=== PATIENT | female | born 1965 | race African-American/Black ===

== ENCOUNTER 2016-10-13 00:48 | Emergency (ER) | payer MEDICAID ==
[~2016-10-13] VITALS: Ht 162.6 cm; Wt 102.0 kg
[~2016-10-13 00:48] MED LIST: ARIP20TA7 PO; B50 PO; PHEN100C4 PO; VENL150C2 PO; WELLBUTRIN PO; ZOLP5TAB2 PO
[2016-10-13] MEDS ORDERED: FAMOTIDINE 20MG TABLET PO SCH (01:30)
[2016-10-13] MEDS ORDERED: LORAZEPAM 1MG TABLET PO ONE ×2 (02:00→03:30)
[2016-10-13 02:31] LABS: CLARITY URINE CLOUDY (CLEAR); COLOR URINE YELLOW (YELLOW); GLUCOSE URINE NEGATIVE (NEGATIVE); KETONES URINE TRACE (NEGATIVE); LEUKOCYTE ESTERASE URINE 1+ (NEGATIVE); NITRITE URINE NEGATIVE (NEGATIVE); OCCULT BLOOD URINE 1+ (NEGATIVE); PH URINE 5.5 (4.5-8.0); PROTEIN URINE 2+ (NEGATIVE); SPECIFIC GRAVITY URINE 1.017 (1.005-1.030)
[2016-10-13 02:31] LABS: BASOPHILS % 0.7 % (0.0-2.0); DIFFERENTIAL COMMENT 0; EOSINOPHILS % 0.1 % (0.0-5.0); HEMATOCRIT. 34.7 % (36.0-48.0); HEMOGLOBIN. 11.1 g/dL (12.0-16.0); LYMPHOCYTES % 14.1 % (20.0-50.0); MEAN CORPUSCULAR HEMOGLOBIN 24.7 pg (28.0-32.0); MEAN CORPUSCULAR HGB CONC 31.9 g/dL (31.0-37.0); MEAN CORPUSCULAR VOLUME 77.3 fL (81.0-99.0); MONOCYTES % 4.8 % (2.0-8.0); NEUTROPHILS % 80.3 % (40.0-76.0); PLATELET 336 x1000/uL (130-400); RED BLOOD CELL COUNT 4.49 mill/uL (4.2-5.4); RED CELL DISTRIBUTION WIDTH 18.2 % (11.6-14.6)
[2016-10-13 02:35] LABS: CHLORIDE 110 mEq/L (98-107); INDEX HEMOLYSI 1 (1-3); INDEX ICTERIC 1 (1-4); INDEX LIPEMIC 1 (1-3)
[2016-10-13 02:37] LABS: HCG SCREEN NEGATIVE
[2016-10-13 02:40] LABS: *AMPHETAMINES SCREEN URINE NEGATIVE (NEGATIVE); *BARBITURATES SCREEN URINE NEGATIVE (NEGATIVE); *BENZODIAZEPINES SCREEN URINE NEGATIVE (NEGATIVE); *COCAINE SCREEN URINE NEGATIVE (NEGATIVE); CANNABINOID URINE SCREEN PRESUMTIVE POSITIVE (NEGATIVE); ECSTASY MDMA SCREEN URINE NEGATIVE (NEGATIVE); METHADONE URINE SCREEN NEGATIVE (NEGATIVE); OPIATES URINE SCREEN NEGATIVE (NEGATIVE); PHENCYCLIDINE URINE SCREEN NEGATIVE (NEGATIVE)
[2016-10-13 02:44] LABS: ALANINE AMINOTRANSFERASE 29 IU/L (13-61); ALBUMIN 3.8 g/dL (3.4-5.0); ANION GAP 11; CALCIUM 9.4 mg/dL (8.5-10.1); CARBON DIOXIDE 24 mEq/L (21-32); LIPASE 238 IU/L (73-393); UREA NITROGEN BLOOD 8 mg/dL (7-21); eGFR > 60 mL/min (>60)
[2016-10-13 02:49] LABS: SQUAMOUS EPITHELIAL CELL URINE 1+ /lpf (RARE/1+)
[2016-10-13 02:50] LABS: RBC URINE 0-2 /hpf (0-2)
[2016-10-13 02:51] LABS: BACTERIA URINE 4+
[2016-10-13] MEDS ORDERED: CEFTRIAXONE 1 G PREMIX 50 ML IV ONE (03:15)
[2016-10-13 06:30] VITALS: BP 137/90
== END 2016-10-13 09:45 | disposition left against medical advice (07) ==
LOC: ER 00:49
DX: F41.9 Anxiety disorder, unspecified (principal); I10 Essential (primary) hypertension; F20.9 Schizophrenia, unspecified; F31.9 Bipolar disorder, unspecified; Z79.899 Other long term (current) drug therapy; F17.200 Nicotine dependence, unspecified, uncomplicated; Z88.8 Allergy status to other drugs, medicaments and biological substances
CPT/HCPCS: 36415; 80053; 80305; 81001; 83690; 84703; 85025; 96365; 99284; J0696; Z7610

== ENCOUNTER 2016-10-13 09:53 | Emergency (ER) | payer MEDICAID, OTHER ==
[~2016-10-13] VITALS: Ht 162.6 cm; Wt 74.0 kg
[2016-10-13] MEDS ORDERED: IBUPROFEN 400MG TABLET PO ONE (11:00)
[2016-10-13 13:49] VITALS: BP 144/76
== END 2016-10-13 15:04 | disposition home or self-care (01) ==
LOC: ER 09:56
DX: S16.1XXA Strain of muscle, fascia and tendon at neck level, initial encounter (principal); I10 Essential (primary) hypertension; F31.9 Bipolar disorder, unspecified; F20.9 Schizophrenia, unspecified; Z88.8 Allergy status to other drugs, medicaments and biological substances; W19.XXXA Unspecified fall, initial encounter; Y93.02 Activity, running; Y99.8 Other external cause status; Y92.89 Other specified places as the place of occurrence of the external cause
CPT/HCPCS: 72040; 72125; 99284

== ENCOUNTER 2016-10-13 22:34 | Emergency (ER) | payer MEDICAID, OTHER ==
[~2016-10-13] VITALS: Ht 162.6 cm; Wt 68.0 kg
[2016-10-13 22:36] VITALS: BP 146/80
== END 2016-10-14 00:59 | disposition left against medical advice (07) ==
LOC: ER 22:34
DX: Z53.21 Procedure and treatment not carried out due to patient leaving prior to being seen by health care provider (principal)

== ENCOUNTER 2021-08-11 04:55 | Emergency (ER) | payer MEDICAID, OTHER ==
[~2021-08-11] VITALS: Ht 170.2 cm; Wt 78.0 kg
[~2021-08-11 04:55] MED LIST changes: +ARIP20TA2 PO; -ARIP20TA7 PO
[2021-08-11 04:56] VITALS: BP 150/60
== END 2021-08-11 05:24 | disposition home or self-care (01) ==
LOC: ER 04:55
DX: R06.00 Dyspnea, unspecified (principal); F17.290 Nicotine dependence, other tobacco product, uncomplicated; Z88.8 Allergy status to other drugs, medicaments and biological substances
CPT/HCPCS: 99283; 99406

== ENCOUNTER 2022-10-24 06:41 | Emergency (ER) | payer MEDICAID ==
[~2022-10-24] VITALS: Ht 167.6 cm; Wt 69.0 kg
[~2022-10-24 06:41] MED LIST changes: -VENL150C2 PO; +VENL150C4 PO
[2022-10-24 06:49] VITALS: BP 162/92
[2022-10-24] MEDS ORDERED: ONDANSETRON HCL 4MG/2ML INJ IV ONE (07:15)
[2022-10-24] MEDS ORDERED: METHYLPREDNISOLONE SOD SUCC 125 MG/2 ML VIAL IV ONE (07:15)
[2022-10-24] MEDS ORDERED: DIPHENHYDRAMINE 50MG/ML VIAL IV ONE (07:15)
[2022-10-24] MEDS ORDERED: FAMOTIDINE 20MG/2ML VIAL IV ONE (07:15)
[2022-10-24 07:28] LABS: CHLORIDE 109 mEq/L (98-107)
[2022-10-24 07:33] LABS: BASOPHILS % 0.6 % (0.0-2.0); EOSINOPHILS % 0.9 % (0.0-5.0); HEMOGLOBIN. 13.4 g/dL (12.0-16.0); LYMPHOCYTES % 30.9 % (20.0-50.0); MEAN CORPUSCULAR HEMOGLOBIN 29.5 pg (28.0-32.0); MEAN CORPUSCULAR VOLUME 88.3 fL (81.0-99.0); MEAN PLATELET VOLUME 7.7 fl (7.4-10.4); MONOCYTES % 10.1 % (2.0-8.0); NEUTROPHILS % 57.5 % (40.0-76.0); PLATELET 257 x1000/uL (130-400); RED BLOOD CELL COUNT 4.53 mill/uL (4.2-5.4); RED CELL DISTRIBUTION WIDTH 14.9 % (11.6-14.6)
[2022-10-24] MEDS ORDERED: METHYLPREDNISOLONE SOD SUCC 125 MG/2 ML VIAL IV NR (10:15)
[2022-10-24] MEDS ORDERED: FAMOTIDINE 20MG/2ML VIAL IV NR (10:30)
[2022-10-24] MEDS ORDERED: DIPHENHYDRAMINE 50MG/ML VIAL IV NR (10:30)
[2022-10-24] MEDS ORDERED: ONDANSETRON HCL 4MG/2ML INJ IV NR (10:30)
[2022-10-24] MEDS ORDERED: EPIN0.1517 IM (11:54)
[2022-10-24] MEDS ORDERED: B50 PO (11:54)
== END 2022-10-24 12:19 | disposition home or self-care (01) ==
LOC: ER 06:53
DX: T78.3XXA Angioneurotic edema, initial encounter (principal); Z88.8 Allergy status to other drugs, medicaments and biological substances
CPT/HCPCS: 36415; 80053; 85025; 96374; 96375; 99284; J2405; J2930; J3490; Z7610

== ENCOUNTER 2024-01-25 14:52 | Emergency (ER) | payer MEDICAID ==
[~2024-01-25] VITALS: Ht 165.1 cm; Wt 82.0 kg
[~2024-01-25 14:52] MED LIST changes: +EFXR15 PO; +EPIN0.1517 IM; -VENL150C4 PO
[2024-01-25 15:03] VITALS: BP 160/80; PULSE 81; RESP 16; O2SAT 97
[2024-01-25] MEDS ORDERED: AMOX1TAB16 MT (17:02)
[2024-01-25] MEDS: TETANUS, DIPHTHERIA, PERTUSSIS VAC/PF 0.5ML (>10YR OLD) IM ONE (17:27)
[2024-01-25] MEDS: AMOXICILLIN/POTASSIUM CLAVULANATE 875/125MG TAB PO ONE (17:27)
== END 2024-01-25 18:12 | disposition home or self-care (01) ==
LOC: ER 14:52
DX: L08.89 Other specified local infections of the skin and subcutaneous tissue (principal); F31.9 Bipolar disorder, unspecified; E11.9 Type 2 diabetes mellitus without complications; I10 Essential (primary) hypertension; Z79.899 Other long term (current) drug therapy; Z88.8 Allergy status to other drugs, medicaments and biological substances
CPT/HCPCS: 90715; 10061; 90471; 99284; Z7610 ×3; 99283

== ENCOUNTER 2024-04-10 08:51 | Emergency (ER) | payer MEDICAID ==
[~2024-04-10] VITALS: Ht 167.6 cm; Wt 98.0 kg
[~2024-04-10 08:51] MED LIST changes: +AMOX1TAB16 MT
[2024-04-10 08:59] VITALS: BP 170/99; PULSE 77; RESP 14; TEMP 98.5; O2SAT 98
[2024-04-10] MEDS: ACETAMINOPHEN 325MG TABLET PO NR (10:31)
[2024-04-10] MEDS ORDERED: MUPI1OIN4 TP (12:34)
[2024-04-10] MEDS ORDERED: IBUP-2029 MT (12:34)
== END 2024-04-10 12:49 | disposition home or self-care (01) ==
LOC: ER 08:54
DX: E11.9 Type 2 diabetes mellitus without complications (principal); I10 Essential (primary) hypertension; F31.9 Bipolar disorder, unspecified; M79.645 Pain in left finger(s); Z79.899 Other long term (current) drug therapy; Z88.8 Allergy status to other drugs, medicaments and biological substances
CPT/HCPCS: 73140; 99283

== ENCOUNTER 2024-04-14 12:04 | Emergency (ER) | payer MEDICAID ==
[~2024-04-14] VITALS: Ht 162.6 cm; Wt 78.0 kg
[~2024-04-14 12:04] MED LIST changes: +IBUP-2029 MT; +MUPI1OIN4 TP
[2024-04-14 12:11] VITALS: O2SAT 98
[2024-04-14] MEDS ORDERED: ZIPR60CA2 MT (15:25)
[2024-04-14] MEDS ORDERED: ALBU18HF2 IH (15:26)
[2024-04-14 15:35] VITALS: BP 156/80; PULSE 71; RESP 19; TEMP 37.00296; O2SAT 100
== END 2024-04-14 15:38 | disposition home or self-care (01) ==
LOC: ER 12:04
DX: S00.83XA Contusion of other part of head, initial encounter (principal); S40.011A Contusion of right shoulder, initial encounter; S40.021A Contusion of right upper arm, initial encounter; E11.9 Type 2 diabetes mellitus without complications; I10 Essential (primary) hypertension; F31.9 Bipolar disorder, unspecified; Z88.8 Allergy status to other drugs, medicaments and biological substances; Z79.899 Other long term (current) drug therapy; Z98.51 Tubal ligation status; Y08.89XA Assault by other specified means, initial encounter; Y93.89 Activity, other specified; Y92.89 Other specified places as the place of occurrence of the external cause; Y99.8 Other external cause status
CPT/HCPCS: 99283

== ENCOUNTER 2024-08-05 17:31 | Emergency (ER) | payer MEDICAID ==
[~2024-08-05] VITALS: Ht 167.6 cm; Wt 78.0 kg
[~2024-08-05 17:31] MED LIST changes: +ALBU18HF2 IH; +ZIPR60CA2 MT
[2024-08-05 17:32] VITALS: O2SAT 99
[2024-08-05] MEDS: IBUPROFEN 600MG TABLET PO STA (17:57)
[2024-08-05 19:14] LABS: BASOPHILS % 1.2 % (0.0-2.0); EOSINOPHILS % 2.9 % (0.0-5.0); HEMATOCRIT. 38.1 % (36.0-48.0); HEMOGLOBIN. 12.3 g/dL (12.0-16.0); MEAN CORPUSCULAR HEMOGLOBIN 27.9 pg (28.0-32.0); MEAN CORPUSCULAR HGB CONC 32.3 g/dL (31.0-37.0); MEAN CORPUSCULAR VOLUME 86.5 fL (81.0-99.0); MEAN PLATELET VOLUME 8.2 fl (7.4-10.4); MONOCYTES % 7.4 % (2.0-8.0); NEUTROPHILS % 45.5 % (40.0-76.0); PLATELET 252 x1000/uL (130-400); RED BLOOD CELL COUNT 4.41 mill/uL (4.2-5.4); RED CELL DISTRIBUTION WIDTH 14.3 % (11.6-14.6)
[2024-08-05 19:20] LABS: CHLORIDE 102 mEq/L (98-107); POTASSIUM 3.5 mEq/L (3.5-5.1); SODIUM 139 mEq/L (136-145)
[2024-08-05 19:21] LABS: CALCIUM 9.6 mg/dL (8.7-10.4); CARBON DIOXIDE 30 mEq/L (21-32)
[2024-08-05 19:26] LABS: GLUCOSE 151 mg/dL (70-105); UREA NITROGEN BLOOD 16 mg/dL (9-23)
[2024-08-05 19:28] LABS: ACETAMINOPHEN < 2 ug/mL (10-30)
[2024-08-05 19:30] LABS: ETHANOL BLOOD < 10 mg/dL (<10)
[2024-08-05] MEDS: LORAZEPAM 0.5MG TABLET PO ONE (20:00)
[2024-08-06 00:28] LABS: *AMPHETAMINES SCREEN URINE NEGATIVE (NEGATIVE); *BENZODIAZEPINES SCREEN URINE NEGATIVE (NEGATIVE)
[2024-08-06 00:29] LABS: *BARBITURATES SCREEN URINE NEGATIVE (NEGATIVE); *COCAINE SCREEN URINE NEGATIVE (NEGATIVE); CANNABINOID URINE SCREEN NEGATIVE (NEGATIVE); CLARITY URINE CLEAR (CLEAR); COLOR URINE YELLOW (YELLOW); ECSTASY MDMA SCREEN URINE NEGATIVE (NEGATIVE); GLUCOSE URINE NEGATIVE (NEGATIVE); KETONES URINE NEGATIVE (NEGATIVE); LEUKOCYTE ESTERASE URINE 3+ (NEGATIVE); METHADONE URINE SCREEN NEGATIVE (NEGATIVE); NITRITE URINE NEGATIVE (NEGATIVE); OCCULT BLOOD URINE NEGATIVE (NEGATIVE); OPIATES URINE SCREEN NEGATIVE (NEGATIVE); PH URINE 5.5 (4.5-8.0); PHENCYCLIDINE URINE SCREEN NEGATIVE (NEGATIVE); PROTEIN URINE NEGATIVE (NEGATIVE); SPECIFIC GRAVITY URINE 1.004 (1.005-1.030); UROBILINOGEN URINE 0.2 E.U./dL (0.2-1.0)
[2024-08-06 01:35] LABS: HCG SCREEN NEGATIVE
[2024-08-06 01:43] LABS: SQUAMOUS EPITHELIAL CELL URINE 2+ /lpf (RARE/1+)
[2024-08-06 01:44] LABS: BACTERIA URINE TRACE; RBC URINE 0-2 /hpf (0-2); WBC URINE 25-50 /hpf (0-2)
[2024-08-06] MEDS: CEPHALEXIN 250MG CAPSULE PO SCH (02:29)
[2024-08-06 09:27] VITALS: TEMP 36.6
[2024-08-06 17:16] VITALS: BP 130/74; PULSE 70; RESP 18; O2SAT 99
[2024-08-06] MEDS: ZIPRASIDONE HCL 20MG CAPSULE PO SCH (17:42)
== END 2024-08-06 17:43 ==
LOC: ER 17:31
DX: R45.851 Suicidal ideations (principal); N30.00 Acute cystitis without hematuria; E11.9 Type 2 diabetes mellitus without complications; F25.0 Schizoaffective disorder, bipolar type; I10 Essential (primary) hypertension; J44.89 Other specified chronic obstructive pulmonary disease; Z79.899 Other long term (current) drug therapy; Z88.8 Allergy status to other drugs, medicaments and biological substances; Z90.89 Acquired absence of other organs; Z98.51 Tubal ligation status; Z20.822 Contact with and (suspected) exposure to COVID-19
CPT/HCPCS: 36415; 73502; 80048; 80305; 80307; 80320; 80329; 81003; 82962; 84703; 85025; 87426; 99285; G0480